=== PATIENT | male | born 1945 | race Caucasian/White ===

== ENCOUNTER 2022-08-07 07:10 | Observation (INO) | payer MEDICARE, BC ==
[2022-08-07] MEDS ORDERED: Sodium Chloride 0.9% 1,000 ML IV ONE (08:16)
[2022-08-07] MEDS ORDERED: Pantoprazole 80 MG in Sodium Chloride 0.9% 100 ML IV ONE (08:18)
[2022-08-07 08:26] LABS: HEMATOCRIT 39.5 % (38.4-49.7); HEMOGLOBIN 13.8 g/dL (12.9-16.9); MEAN CORPUSCULAR HEMOGLOBIN 31.4 pg (31.6-35.5); MEAN CORPUSCULAR HGB CONC 34.9 g/dL (31.6-35.5); MEAN CORPUSCULAR VOLUME 89.8 fL (81.4-99.0); RED BLOOD CELL COUNT 4.4 M/uL (4.14-5.76); WHITE BLOOD CELL COUNT,WBC 11.8 K/uL (3.2-11.0)
[2022-08-07 08:42] LABS: INR 1.1; PROTHROMBIN TIME 10.8 sec (9.2-10.6)
[2022-08-07 08:51] LABS: A/G RATIO 0.9 (1.2-2.2); ALANINE AMINOTRANSFERASE,ALT 23 U/L (12-78); ALBUMIN 3.4 g/dL (3.4-5.0); ALKALINE PHOSPHATASE 90 U/L (46-116); ANION GAP 11.1 mmol/L (5.0-14.0); ASPARTATE AMNIOTRANSFERASE,AST 19 U/L (15-37); BILIRUBIN TOTAL 0.8 mg/dL (0.2-1.0); BLOOD UREA NITROGEN,BUN 13 mg/dL (7-18); CALCIUM 8.8 mg/dL (8.5-10.1); CARBON DIOXIDE,CO2 29 mmol/L (21-32); CHLORIDE,CL 102 mmol/L (100-108); CREATININE 0.9 mg/dL (0.8-1.3); EST CRCL DRUG DOSING (CG) 70.92 mL/min; ESTIMATED GFR 89 mL/min (>60); GLUCOSE RANDOM 193 mg/dL (74-106); POTASSIUM,K 4.1 mmol/L (3.6-5.2); PROTEIN TOTAL,TP 7.4 g/dL (6.4-8.2); SODIUM,NA 138 mmol/L (140-148); TROPONIN I HIGH SENSITIVITY 11.7 pg/mL (<=60.3)
[2022-08-07 09:08] LABS: APPEARANCE,URINE CLEAR (CLEAR); BILIRUBIN,URINE NEGATIVE (NEGATIVE); COLOR,URINE YELLOW (YELLOW); GLUCOSE,URINE 100 mg/dL (NEGATIVE); KETONES,URINE NEGATIVE (NEGATIVE); LEUKOCYTE ESTERASE,URINE NEGATIVE (NEGATIVE); NITRITE,URINE NEGATIVE (NEGATIVE); OCCULT BLOOD,URINE NEGATIVE (NEGATIVE); PH,URINE 6.5 (5.0-8.0); PROTEIN,URINE NEGATIVE (NEGATIVE); UROBILINOGEN,URINE 0.2 EU/dL (0.2-1.0)
[2022-08-07 09:23] LABS: AMORPHOUS SEDIMENT,URINE NOT SEEN; BACTERIA,URINE NOT SEEN; EPITHELIAL CELLS,URINE RARE; MUCUS,URINE RARE; RBC,URINE 0-5 (0-5); WBC,URINE NOT SEEN (0-5)
[2022-08-07] MEDS ORDERED: HYDROmorphone 0.5 MG/0.5 ML Syringe IVPUSH ONE (09:46)
[2022-08-07] MEDS ORDERED: Ondansetron 4 MG/2 ML SDV IV PRN (13:19)
[2022-08-07] MEDS ORDERED: oxyCODONE 5 MG Tab PO PRN (13:19)
[2022-08-07] MEDS ORDERED: Magnesium Hydroxide 400 MG/5 ML Susp 30 ML Cup PO PRN (13:19)
[2022-08-07] MEDS ORDERED: Acetaminophen 325 MG Tab PO PRN (13:19)
[2022-08-07] MEDS ORDERED: Ondansetron 4 MG Tab.DIS PO PRN (13:19)
[2022-08-07] MEDS ORDERED: HYDROmorphone 1 MG/ML Syringe IVPUSH PRN (13:19)
[2022-08-07] MEDS: metFORMIN 500 MG Tab PO SCH (17:55)
[2022-08-07] MEDS: Lactobacillus Rhamnosus GG (Probiotic) Cap PO SCH (20:23)
[2022-08-07] MEDS: atorvaSTATin 20 MG Tab PO SCH (20:24)
[2022-08-07] MEDS ORDERED: Sodium Chloride 0.9% 1,000 ML IV SCH (23:59)
[2022-08-08 05:42] LABS: HEMATOCRIT 37.1 % (38.4-49.7); HEMOGLOBIN 12.9 g/dL (12.9-16.9); MEAN CORPUSCULAR HEMOGLOBIN 31.2 pg (31.6-35.5); MEAN CORPUSCULAR HGB CONC 34.8 g/dL (31.6-35.5); MEAN CORPUSCULAR VOLUME 89.8 fL (81.4-99.0); RED BLOOD CELL COUNT 4.13 M/uL (4.14-5.76); WHITE BLOOD CELL COUNT,WBC 9.1 K/uL (3.2-11.0)
[2022-08-08 06:03] LABS: A/G RATIO 0.8 (1.2-2.2); ALANINE AMINOTRANSFERASE,ALT 19 U/L (12-78); ALBUMIN 2.9 g/dL (3.4-5.0); ALKALINE PHOSPHATASE 67 U/L (46-116); ANION GAP 10.8 mmol/L (5.0-14.0); ASPARTATE AMNIOTRANSFERASE,AST 14 U/L (15-37); BILIRUBIN TOTAL 1.2 mg/dL (0.2-1.0); BLOOD UREA NITROGEN,BUN 9 mg/dL (7-18); CALCIUM 8.4 mg/dL (8.5-10.1); CARBON DIOXIDE,CO2 28 mmol/L (21-32); CHLORIDE,CL 103 mmol/L (100-108); CREATININE 0.9 mg/dL (0.8-1.3); EST CRCL DRUG DOSING (CG) 70.92 mL/min; ESTIMATED GFR 89 mL/min (>60); GLUCOSE RANDOM 142 mg/dL (74-106); POTASSIUM,K 3.8 mmol/L (3.6-5.2); PROTEIN TOTAL,TP 6.7 g/dL (6.4-8.2); SODIUM,NA 138 mmol/L (140-148)
[2022-08-08] MEDS: metFORMIN 500 MG Tab PO SCH ×2 (07:34→16:17)
[2022-08-08] MEDS ORDERED: HYDROmorphone 0.5 MG/0.5 ML Syringe IVPUSH PRN ×2 (07:36→15:00)
[2022-08-08] MEDS ORDERED: Lidocaine 1% with EPINEPHrine 1:100,000 50 ML MDV ONE ×2 (08:03→10:12)
[2022-08-08] MEDS ORDERED: Bupivacaine 0.5% 50 ML MDV ONE ×2 (08:03→10:12)
[2022-08-08] MEDS ORDERED: Rocuronium 50 MG/5 ML Vial ONE (08:23)
[2022-08-08] MEDS ORDERED: Glycopyrrolate 0.2 MG/ML 5 ML MDV ONE (08:23)
[2022-08-08] MEDS ORDERED: Ondansetron 4 MG/2 ML SDV ONE (08:23)
[2022-08-08] MEDS ORDERED: Succinylcholine 200 MG/10 ML MDV ONE (08:23)
[2022-08-08] MEDS ORDERED: Propofol 200 MG/20 ML SDV ONE (08:23)
[2022-08-08] MEDS ORDERED: Dexamethasone 4 MG/ML SDV ONE (08:23)
[2022-08-08] MEDS ORDERED: Neostigmine Methylsulfate 1 MG/ML 5 ML Syringe ONE (08:23)
[2022-08-08] MEDS ORDERED: fentaNYL 250 MCG/5 ML SDV ONE (08:25)
[2022-08-08] MEDS: Lisinopril 20 MG Tab PO SCH (09:19)
[2022-08-08] MEDS: Lactobacillus Rhamnosus GG (Probiotic) Cap PO SCH (09:19)
[2022-08-08] MEDS ORDERED: fentaNYL 100 MCG/2 ML SDV ONE (12:53)
[2022-08-08] MEDS ORDERED: Labetalol 20 MG/4 ML Syringe ONE (13:01)
[2022-08-08] MEDS ORDERED: Sugammadex Sodium 200 MG/2 ML VIAL ONE (13:35)
[2022-08-08] MEDS ORDERED: Glucagon,Human Recombinant 1 MG Vial IM PRN ×3 (13:53→21:15)
[2022-08-08] MEDS ORDERED: 50% Dextrose in Water 50 ML Syringe IVPUSH PRN ×3 (13:53→21:15)
[2022-08-08] MEDS ORDERED: HYDROmorphone 2 MG Tab PO PRN (14:09)
[2022-08-08] MEDS ORDERED: Glucose Gel 15 GM in 37.5 GM Tube PO PRN (14:10)
[2022-08-08] MEDS ORDERED: Insulin Lispro 100 Unit/ML 3 ML KwikPen SUBCUT ONE (14:15)
[2022-08-08] MEDS: Lactated Ringers 1,000 ML IV SCH (14:30)
[2022-08-08] MEDS ORDERED: Ondansetron 4 MG/2 ML SDV IVPUSH PRN (15:00)
[2022-08-08] MEDS ORDERED: HYDROmorphone 1 MG/ML Syringe IV PRN (15:00)
[2022-08-08] MEDS: Acetaminophen 325 MG Tab PO SCH ×2 (15:44→22:17)
[2022-08-08] MEDS ORDERED: Pantoprazole 40 MG Vial IVPUSH SCH (16:00)
[2022-08-08] MEDS: cefOXitin 2 GM in Sodium Chloride 0.9% 50 ML IV SCH ×2 (16:16→22:18)
[2022-08-08] MEDS: Insulin Lispro 100 Unit/ML 3 ML KwikPen SUBCUT SCH ×2 (17:11→21:47)
[2022-08-08] MEDS ORDERED: Insulin Lispro 100 Units/ML 3 ML Vial SUBCUT ONE (21:15)
[2022-08-08] MEDS: atorvaSTATin 20 MG Tab PO SCH (22:17)
[2022-08-09] MEDS: Lactated Ringers 1,000 ML IV SCH (01:20)
[2022-08-09] MEDS: cefOXitin 2 GM in Sodium Chloride 0.9% 50 ML IV SCH ×2 (04:05→09:14)
[2022-08-09] MEDS: Acetaminophen 325 MG Tab PO SCH ×2 (04:06→09:13)
[2022-08-09 04:38] LABS: BASOPHILS PERCENT AUTO 0.2 % (0.1-1.3); HEMATOCRIT 37.1 % (38.4-49.7); HEMOGLOBIN 13.1 g/dL (12.9-16.9); IMMATURE GRAN ABSOLUTE AUTO 0.08 K/uL (0.00-0.23); IMMATURE GRAN PERCENT AUTO 0.6 % (0.0-0.7); LYMPHOCYTES ABSOLUTE AUTO 0.64 K/uL (0.8-3.3); LYMPHOCYTES PERCENT AUTO 4.9 % (11.4-47.7); MEAN CORPUSCULAR HEMOGLOBIN 31.3 pg (31.6-35.5); MEAN CORPUSCULAR HGB CONC 35.3 g/dL (31.6-35.5); MEAN CORPUSCULAR VOLUME 88.8 fL (81.4-99.0); MONOCYTES ABSOLUTE AUTO 0.72 K/uL (0.20-0.90); MONOCYTES PERCENT AUTO 5.5 % (3.3-12.6); NEUTROPHILS ABSOLUTE AUTO 11.57 K/uL (1.0-7.6); NEUTROPHILS PERCENT AUTO 88.8 % (40.0-78.1); PLATELET COUNT,PLT 203 K/uL (130-375); RED BLOOD CELL COUNT 4.18 M/uL (4.14-5.76)
[2022-08-09 04:57] LABS: BASOPHILS ABSOLUTE AUTO 0.02 K/uL (0.00-0.10)
[2022-08-09] MEDS: metFORMIN 500 MG Tab PO SCH (08:11)
[2022-08-09] MEDS: Lisinopril 20 MG Tab PO SCH (08:12)
[2022-08-09] MEDS: Insulin Lispro 100 Unit/ML 3 ML KwikPen SUBCUT SCH (08:13)
[2022-08-09] MEDS ORDERED: Doxycycline 100 MG Cap PO SCH (09:00)
== END 2022-08-09 12:35 | disposition home or self-care (01) ==
LOC: JP.ED 07:10 → JP.MS 11:47
PROVIDERS: ADMIT Internal Medicine; ATTEND Internal Medicine
DX: K80.12 Calculus of gallbladder with acute and chronic cholecystitis without obstruction (principal); K42.0 Umbilical hernia with obstruction, without gangrene; E11.40 Type 2 diabetes mellitus with diabetic neuropathy, unspecified; I10 Essential (primary) hypertension; G47.30 Sleep apnea, unspecified; E78.00 Pure hypercholesterolemia, unspecified; Z79.84 Long term (current) use of oral hypoglycemic drugs; Z79.4 Long term (current) use of insulin; Z79.899 Other long term (current) drug therapy; Z88.0 Allergy status to penicillin; Z20.822 Contact with and (suspected) exposure to COVID-19
CPT/HCPCS: 36415; 71046; 71046-26; 74018; 74018-26; 80053; 81001; 82247; 82947; 83605; 83690; 84075; 84484; 85025; 85027; 85610; 88304; 96361; 96365; 96375; 99285-25; A9270-GY; C9113; J0131; J0171; J0330; J0694; J0713; J1100; J1170; J1815; J1815-GY; J2405; J2704; J2710; J2795; J3010; J3490; J7030; J7120; U0002